=== PATIENT | female | born 1950 | race Caucasian/White ===

== ENCOUNTER 2020-11-23 17:40 | Emergency (ER) | payer MEDICARE, OTHER ==
[2012-08-07 13:32] VITALS: Ht 163.8 cm; Wt 86.8 kg
[~2020-11-23] VITALS: Ht 163.8 cm; Wt 86.8 kg
[2020-11-23] MEDS ORDERED: HYDROCODON-ACE1 EAC7 PO (19:34)
[2020-11-23 20:32] VITALS: BP 150/99
[2020-11-24] MEDS ORDERED: OMEPRAZOLE40 MG PO ×2 (14:11→20:23)
[2020-11-24] MEDS ORDERED: MULTI-DAY VITAM1 TAB PO ×2 (14:11→20:26)
[2020-11-24] MEDS ORDERED: FLAXSEED OIL (14:12)
[2020-11-24] MEDS ORDERED: PRAVASTATIN SOD10 MG (14:13)
[2020-11-24] MEDS ORDERED: PROLIA INJ 660 MG/M1 SC (14:14)
[2020-11-24] MEDS ORDERED: COZAAR25 MG PO ×2 (14:14→20:24)
[2020-11-24] MEDS ORDERED: LEXAPRO10 MG (14:14)
[2020-11-24] MEDS ORDERED: HYDROCHLOROTH12.5 M1 PO ×2 (14:14→20:24)
[2020-11-24] MEDS ORDERED: CALCIUM/D3 (14:15)
[2020-11-24] MEDS ORDERED: ERGOCALCIF50000 UNI1 PO (14:16)
[2020-11-24] MEDS ORDERED: MAGNESIUM OXID250 MG PO ×2 (14:16→20:28)
[2020-11-24] MEDS ORDERED: MELATONIN10 M1 (14:16)
[2020-11-24] MEDS ORDERED: PRAVASTATIN SOD10 MG PO (20:25)
[2020-11-24] MEDS ORDERED: LEXAPRO10 MG PO (20:25)
[2020-11-24] MEDS ORDERED: CALCIUM 600 +1 EAC3 PO (20:27)
[2020-11-24] MEDS ORDERED: MELATONIN10 M1 PO (20:28)
[2020-11-24] MEDS ORDERED: TUMS X-STR300 MG PO (20:30)
[2020-11-24 23:54] VITALS: Ht 163.8 cm; Wt 86.8 kg
== END 2020-11-23 19:49 | disposition home or self-care (01) ==
LOC: D.ER 17:40
DX: S52.91XA Unspecified fracture of right forearm, initial encounter for closed fracture (principal); W19.XXXA Unspecified fall, initial encounter; Y93.9 Activity, unspecified; Y92.9 Unspecified place or not applicable; K21.9 Gastro-esophageal reflux disease without esophagitis

== ENCOUNTER 2020-11-24 10:46 | Observation (INO) | payer MEDICARE, OTHER ==
[2020-11-24] VITALS (7 sets, daily range): BP systolic 148–169; BP diastolic 69–80; Ht 162.6 cm; Wt 86.8 kg
[~2020-11-24] VITALS: Ht 162.6 cm; Wt 86.8 kg
[~2020-11-24 10:46] MED LIST: HYDROCODON-ACE1 EAC7 PO
[2020-11-24 11:15] LABS: EOSINOPHILS 1.3 % (0-7); HEMATOCRIT 43.2 % (36.0-48.0); HEMOGLOBIN 14.6 g/dL (12-16); LYMPHOCYTES 20.2 % (15-50); MCH 32.9 pg (26.0-34.0); MCHC 33.9 g/dL (31.0-37.0); MEAN PLATELET VOLUME 8.5 fL (7.4-10.4); NEUTROPHILS 68.5 % (40-80); PLATELET COUNT 281 10x3/uL (130-400); RBC 4.46 10x6/uL (4.00-5.40); WBC 8.2 10x3/uL (4.8-10.8)
[2020-11-24 11:31] LABS: ANION GAP 14.7 mmol/L (8-16); CALCIUM 9.4 mg/dL (8.5-10.1); CARBON DIOXIDE 26.1 mmol/L (21.0-32.0); CREATININE - SERUM 0.9 mg/dL (0.6-1.3); POTASSIUM - SERUM 3.8 mmol/L (3.5-5.1)
[2020-11-24] MEDS ORDERED: MULTI-DAY VITAM1 TAB PO ×2 (14:11→20:26)
[2020-11-24] MEDS ORDERED: OMEPRAZOLE40 MG PO ×2 (14:11→20:23)
[2020-11-24] MEDS ORDERED: FLAXSEED OIL (14:12)
[2020-11-24] MEDS ORDERED: PRAVASTATIN SOD10 MG (14:13)
[2020-11-24] MEDS ORDERED: HYDROCHLOROTH12.5 M1 PO ×2 (14:14→20:24)
[2020-11-24] MEDS ORDERED: LEXAPRO10 MG (14:14)
[2020-11-24] MEDS ORDERED: COZAAR25 MG PO ×2 (14:14→20:24)
[2020-11-24] MEDS ORDERED: PROLIA INJ 660 MG/M1 SC (14:14)
[2020-11-24] MEDS ORDERED: CALCIUM/D3 (14:15)
[2020-11-24] MEDS ORDERED: MELATONIN10 M1 (14:16)
[2020-11-24] MEDS ORDERED: MAGNESIUM OXID250 MG PO ×2 (14:16→20:28)
[2020-11-24] MEDS ORDERED: ERGOCALCIF50000 UNI1 PO (14:16)
[2020-11-24] MEDS ORDERED: PRAVASTATIN SOD10 MG PO (20:25)
[2020-11-24] MEDS ORDERED: LEXAPRO10 MG PO (20:25)
[2020-11-24] MEDS ORDERED: CALCIUM 600 +1 EAC3 PO (20:27)
[2020-11-24] MEDS ORDERED: MELATONIN10 M1 PO (20:28)
[2020-11-24] MEDS ORDERED: TUMS X-STR300 MG PO (20:30)
[2020-11-25 06:38] LABS: HEMATOCRIT 38.3 % (36.0-48.0); HEMOGLOBIN 12.8 g/dL (12-16)
--- NOTE | 2020-11-25 08:10 | NUR ---
AWAKE AND ALERT. ORIENTED X3. NO C/O AT THIS TIME. AT BEDSIDE. LUNGS ARE CLEAR BILATERLLY, NO COUGH NOTED. SKIN IS INTACT WITHOUT REDNESS EXCEPT INCISION TO LEFT ARM WHICH HAS A DRY INTACT DRESSING IN PLACE. IV TO RIGHT WRIST IS PATENT WITHOUT REDNESS AT INSERTION SITE. DENIES NEEDS.
--- NOTE | 2020-11-25 09:00 | NUR ---
ATE ALL OF BREAKFAST WITHOUT DIFFICULTY. TOOK AM MEDS. UP TO BR WITH ONE PERSON MIN ASSIST. VOIDED CLEAR YELLOW URINE WITHOUT DIFFICULTY. DENIES NEEDS. AMBULATED IN HALLWAY WITH PT.
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
[2020-11-25] MEDS ORDERED: HYDROCODON-ACE1 EA10 PO (09:11)
[2020-11-25] MEDS ORDERED: IBUPROFEN800 MG PO (09:11)
--- NOTE | 2020-11-25 11:30 | NUR ---
DISHARGED TO HOME WITH . DISCHARGE INSTRUCTIONS GIVEN BOTH VERBALLY AND WRITTEN. ALL QUESTIONS ANSWERED. PATIENT AND VERBALIZED UNDERSTANDING OF SAME. NEEDED PRESCRIPTIONS GIVEN TO PATIENT. IV TO RIGHT WRIST D/C WITH CATHETER INTACT. ALL BELONGINGS WITH PATIENT.
== END 2020-11-25 11:53 | disposition home or self-care (01) ==
LOC: D.SDCHOLD 10:46 → OBSVTIME 10:47 → D.MS 19:30
PROVIDERS: ADMIT Orthopaedic Surgery; ATTEND Orthopaedic Surgery
DX: S52.572A Other intraarticular fracture of lower end of left radius, initial encounter for closed fracture (principal); W19.XXXA Unspecified fall, initial encounter